=== PATIENT | female | born 1995 | race Caucasian/White ===

== ENCOUNTER 2016-09-07 23:57 | Emergency (ER) | payer OTHER ==
[~2016-09-07] VITALS: Ht 160 cm; Wt 83.4 kg
[~2016-09-07 23:57] MED LIST: COLACE100 MG PO; ENDOCET 5-3251 EACH PO; FERROUS SULFAT325 MG PO; HYDROCODON-ACE1 EAC7 PO; IBUPROFEN800 MG PO; MACROBID100 MG PO; NAPROXEN500 MG PO; PRENATAL TABLE1 EAC3 PO; TYLENOL WITH C1 EACH PO
[2016-09-08 00:38] LABS: HEMATOCRIT 36.4 % (36.0-46.0); MCH 22.6 PG (29.0-34.0); MCHC 29.9 G/DL (30.0-36.0); MCV 75.4 FL (83-99); MEAN PLAT.VOLUME 11.1 uM^3 (9.5-12.4); PLATELET COUNT 259 K/uL (156-360); RBC DIS.WIDTH-CV 15.6 % (11.8-14.6); RBC DIS.WIDTH-SD 42.5 % (39-53); RED BLOOD COUNT 4.83 M/uL (3.80-5.20); WHITE BLOOD COUNT 7.7 K/uL (4.1-10.2)
[2016-09-08 00:50] LABS: CHLORIDE 104 mEq/L (99-109); POTASSIUM 4.2 mEq/L (3.7-5.4); SODIUM 138 mEq/L (136-147)
[2016-09-08 00:52] LABS: GLUCOSE 99 mg/dL (70-99)
[2016-09-08 00:53] LABS: ANION GAP 8 MEQ/L (2-14)
[2016-09-08 00:54] LABS: TOTAL BILIRUBIN 0.2 mg/dL (0.0-1.0)
[2016-09-08 00:56] LABS: ALKALINE PHOSPHATASE 56 IU/L (3-129); GFR ESTIMATE (CALCULATED) > 59 mL/min/
[2016-09-08 00:57] LABS: UREA NITROGEN (BUN) 11 mg/dL (9-23)
[2016-09-08 00:59] LABS: LIPASE 21 U/L (1.0-51.0)
[2016-09-08 01:06] LABS: QUANTITATIVE HCG < 4.0 MIU/ML
[2016-09-08 01:10] LABS: BILIRUBIN NEGATIVE; BLOOD NEGATIVE; COLOR YELLOW ((YELLOW)); GLUCOSE (STRIP) NEGATIVE; KETONES NEGATIVE; LEUKOCYTES NEGATIVE; NITRITE NEGATIVE; PROTEIN (STRIP) NEGATIVE; SPECIFIC GRAVITY 1.023 (1.000-1.030); UROBILINOGEN 0.2 MG/DL (0.2-1.0)
[2016-09-08 01:11] LABS: ADD MIUA? NO; UCUL ADDED? NO
[2016-09-08] MEDS ORDERED: ZOFRAN ODT4 MG PO (02:20)
[2016-09-08] MEDS ORDERED: NORCO 5/3251 TABLET PO (02:20)
[2016-09-08 02:31] VITALS: BP 115/64
== END 2016-09-08 02:36 | disposition home or self-care (01) ==
LOC: EME 23:57
DX: K80.20 Calculus of gallbladder without cholecystitis without obstruction (principal)
CPT/HCPCS: 76705; 80053; 81003; 83690; 84702; 85027; 99281; 99285

== ENCOUNTER 2017-11-23 16:13 | Emergency (ER) | payer OTHER ==
[~2017-11-23] VITALS: Ht 160 cm; Wt 82.3 kg
[~2017-11-23 16:13] MED LIST changes: +NORCO 5/3251 TABLET PO; +ZOFRAN ODT4 MG PO
[2017-11-23 16:57] LABS: BASOPHIL (%) 0.5 % (0-1); EOSINOPHIL COUNT 0.1 K/uL (0-0.3); HEMATOCRIT 40.8 % (36.0-46.0); HEMOGLOBIN 13.7 G/DL (11.9-15.5); IMMATURE GRANULOCYTE (%) 0.6 % (0.0-0.7); LYMPHOCYTE COUNT 1.7 K/uL (1.0-2.8); MCH 29.8 PG (29.0-34.0); MCHC 33.6 G/DL (30.0-36.0); MCV 88.9 FL (83-99); MONOCYTE (%) 7.8 % (3-12); MONOCYTE COUNT 0.6 K/uL (0-0.8); NEUTROPHIL (%) 68.1 % (45-76); NEUTROPHIL COUNT 5.4 K/uL (1.8-6.4); PLATELET COUNT 222 K/uL (156-360); RBC DIS.WIDTH-CV 13.2 % (11.8-14.6); RBC DIS.WIDTH-SD 42.9 % (39-53); RED BLOOD COUNT 4.59 M/uL (3.80-5.20); WHITE BLOOD COUNT 7.9 K/uL (4.1-10.2)
[2017-11-23 17:08] LABS: ALBUMIN 4.4 g/dL (3.2-4.8); CHLORIDE 108 mEq/L (99-109); POTASSIUM 3.9 mEq/L (3.7-5.4); SODIUM 140 mEq/L (136-147)
[2017-11-23 17:09] LABS: MAGNESIUM 2.3 mg/dL (1.3-2.7)
[2017-11-23 17:11] LABS: GLUCOSE 105 mg/dL (70-99); TOTAL PROTEIN 7.7 g/dL (6.4-8.3)
[2017-11-23 17:13] LABS: TOTAL BILIRUBIN 0.4 mg/dL (0.0-1.0)
[2017-11-23 17:14] LABS: ALKALINE PHOSPHATASE 50 IU/L (3-129); CREATININE 0.9 mg/dL (0.6-1.3); GFR ESTIMATE (CALCULATED) > 59 mL/min/
[2017-11-23 17:15] LABS: UREA NITROGEN (BUN) 8 mg/dL (9-23)
[2017-11-23 17:16] LABS: AST (GOT) 18 IU/L (2-34)
[2017-11-23 17:17] LABS: ALT (GPT) 12 IU/L (3-49)
[2017-11-23 17:18] LABS: LIPASE 21 U/L (1.0-51.0)
[2017-11-23 17:42] LABS: APPEARANCE SL.HAZY ((CLEAR)); BILIRUBIN NEGATIVE; BLOOD NEGATIVE; COLOR YELLOW ((YELLOW)); GLUCOSE (STRIP) NEGATIVE; KETONES NEGATIVE; LEUKOCYTES SMALL; NITRITE NEGATIVE; PROTEIN (STRIP) 30; SPECIFIC GRAVITY 1.018 (1.000-1.030)
[2017-11-23 18:13] LABS: BACTERIA 1+ /HPF; EPITHELIAL CELLS 1+ /HPF; MUCUS NONE SEEN /LPF; UCUL ADDED? YES
[2017-11-23 18:14] LABS: AMORPHOUS URATES CRYSTALS 2+
[2017-11-23] MEDS ORDERED: LORTAB 5-325 M1 EACH PO (19:10)
[2017-11-23] MEDS ORDERED: ZOFRAN ODT4 MG PO (19:10)
[2017-11-23 19:46] VITALS: BP 106/78
== END 2017-11-23 19:55 | disposition home or self-care (01) ==
LOC: EME 16:13
PROVIDERS: Emergency Medicine
DX: O99.619 Diseases of the digestive system complicating pregnancy, unspecified trimester (principal); K80.70 Calculus of gallbladder and bile duct without cholecystitis without obstruction; O9A.319 Physical abuse complicating pregnancy, unspecified trimester; S93.402A Sprain of unspecified ligament of left ankle, initial encounter; S60.512A Abrasion of left hand, initial encounter; Y04.2XXA Assault by strike against or bumped into by another person, initial encounter; Y07.03 Male partner, perpetrator of maltreatment and neglect; X50.1XXA Overexertion from prolonged static or awkward postures, initial encounter; O99.330 Smoking (tobacco) complicating pregnancy, unspecified trimester; Z3A.00 Weeks of gestation of pregnancy not specified
CPT/HCPCS: 76705; 80053; 81003; 81025; 83690; 83735; 84702; 85025; 87077; 87086; 87186; 99281; 99285